=== PATIENT | male | born 1970 | race Caucasian/White ===

== ENCOUNTER 2024-06-05 02:50 | Emergency (ER) | payer BC, SELFPAY ==
[2024-06-05 02:57] VITALS: BP 157/81
[2024-06-05 02:59] LABS: Glucose - Point of Care 134 mg/dl (70-99)
[2024-06-05 03:04] VITALS: BMI 35.5
[2024-06-05] MEDS: NSS 1000 IV (03:16)
[2024-06-05 03:27] LABS: % Basophils 0.3 % (0-2); % Eosinophils 1.4 % (0-6); % Immature Granulocytes 0.5 % (0-0.5); % Lymphocytes 14.7 % (20.5-51.1); % Monocytes 8.8 % (1.7-9.3); % Neutrophils 74.3 % (42.2-75.2); Absolute Eosinophils 0.2 10^3/uL (0-0.7); Absolute Immature Granulocytes 0.1 10^3/uL (0-0.05); Absolute Lymphocytes 1.8 10^3/uL (1.2-3.4); Absolute Monocytes 1.1 10^3/uL (0.1-0.6); Absolute Neutrophils 9.3 10^3/uL (1.4-6.5); Hematocrit 43.9 % (39.0-52.0); Hemoglobin 14.9 g/dL (13.0-18.0); Mean Corp Hgb Conc. 33.9 g/dL (33.0-37.0); Mean Corpuscular Hgb 29.6 pg (27.0-31.0); Mean Corpuscular Volume 87.1 fL (80.0-94.0); Mean Platelet Volume 8.9 fL (7.4-10.4); Nucleated Red Blood Cells % 0 % (-); Platelet Count 217 10^3/uL (130-400); Red Blood Cell Count 5.04 10^6/uL (4.70-6.10); Red Cell Dist. Width 13.2 % (11.5-14.5); White Blood Cell Count 12.5 10^3/uL (4.8-10.8)
[2024-06-05 03:42] LABS: COVID-19 Antigen Negative (Negative)
--- NOTE | 2024-06-05 03:45 | ED.GENMED ---
History of Present Illness
General
Chief Complaint: Fever
Source: patient and family
Exam Limitations: none
Time Seen by Provider: 06/05/24 02:58
Nursing documentation reviewed up to this point in time: agreed with
History of Present Illness
History of Present Illness:
This is a pleasant 54-year-old male who presents with fever, cough, sore throat, body aches, and painful inspiration. Patient is an insulin-dependent diabetic and has an insulin pump. He states that his blood sugar has been running slightly higher
normal in the 140s. Tonight he states that his 'body locked up 'and his left ribs have been causing him pain. Patient reports no sick contacts. He states that upon arrival, his symptoms have improved slightly. Denies chest pain or shortness of
breath while at rest.
Past History
Past History
ED Past Medical History: IDDM, Hypothyroidism and Other (Vitamin D deficiency)
ED Past Surgical History: None
Social History
Tobacco: Non-smoker
Alcohol: Occasional
Personal:
Living: with family
Employment: Employed
Family History
Family History: Other (Noncontributory)
Review of Systems
Review of Systems
Allergies reviewed?: Yes
All Other Systems: ROS reviewed and negative except as documented in HPI and ROS
Constitutional: Reports fever, fatigue, sleep disturbance and chills
EENT: Reports no symptoms
Respiratory: Reports cough
Cardiac: Reports no symptoms
ABD/GI: Reports no symptoms
: Reports no symptoms
Musculoskeletal: Reports no symptoms
Skin: Reports no symptoms
Neurological: Reports no symptoms
Endocrine: Reports no symptoms
Hematologic/Lymphatic: Reports no symptoms
Psychiatric: Reports anxiety
Phy Exam
General Physical Exam
General Presentation: well appearing and no apparent distress
General Skin: warm and dry
General Habitus: normal
General Mental: alert
General Hydration: appears well hydrated
ENT Exam
ENT Exam: EOMI, pharynx normal, neck supple and normocephalic
Eye Exam
Eye Exam: PERRL, cornea clear and conjunctiva normal
Cardiovascular Exam
Cardiovascular Exam: regular rate/rhythm, no edema, no murmur and normal peripheral pulses
Pulmonary Exam
Pulmonary Exam: lungs clear, no respiratory distress, no rales, no crackles, no rhonchi, no stridor and no cough
Breath Sounds: Wheeze: left lower
Gastrointestinal Exam
Gastrointestinal Exam: normal bowel sounds, non tender, soft, no organomegaly, no pulsatile mass and non distended
Neurological Exam
Neurological Exam: alert, oriented x3, no motor deficits and speech normal
Musculoskeletal Exam
Musculoskeletal Exam: full ROM and no edema
Skin Exam
Skin Exam: normal color, warm/dry, no rash and no petechia
Psychiatric Exam
Psychiatric Exam: normal mood/affect
Sepsis
Sepsis Screening
Sepsis Assessment: Sepsis Ruled Out
Sepsis Screen
Sepsis Screen: Sepsis Ruled Out
Date: 06/05/24
Time: 06:40
Course
Orders/Labs/Results
Orders:
Orders
06/05/24 02:58
Urinalysis Reflex To Culture Urgent
06/05/24 02:59
ECG [Electrocardiogram (*1)] Urgent
Reason for Study: Abdominal Pain
06/05/24 03:00
EKG- Treatment ONCE
06/05/24 03:02
0.9% Sodium Chloride 1000 ml [Nss] 1,000 ml IV BOLUS
06/05/24 03:08
COVID-19 Antigen Urgent
Source: Nasal Swab
Complete Blood Count/With Diff Urgent
Comprehensive Metabolic Panel Urgent
Lactic Acid Q4H
Comment: CANCEL 2nd LACTIC ACID IF 1st LACTIC ACID IS LESS THAN 2
Influenza A+B Rapid Molecular Urgent
SEAN Source: Nasal Swab
Specimen Description:
06/05/24 04:14
CT Chest PE Study Urgent
Comment:
Reason For Exam: cp. dyspnea. tachy
06/05/24 05:50
Azithromycin [Zithromax] 500 mg PO NOW STA
06/05/24 05:51
CefTRIAXone [Rocephin] 2,000 mg IV NOW STA
06/05/24 06:10
Sterile Water [Sterile Water For Injection] 20 ml .ROUTE .STK-MED
06/05/24 07:00
Lactic Acid Q4H
Comment: CANCEL 2nd LACTIC ACID IF 1st LACTIC ACID IS LESS THAN 2
Abnormal Lab Results
06/05/24 06/05/24
02:57 03:08
WBC 12.5 H 10^3/uL
(4.8-10.8)
Abs Immat Gran (auto) 0.1 H 10^3/uL
(0-0.05)
Absolute Neuts (auto) 9.3 H 10^3/uL
(1.4-6.5)
Absolute Monos (auto) 1.1 H 10^3/uL
(0.1-0.6)
Lymphocytes % 14.7 L %
(20.5-51.1)
Glucose 148 H mg/dl
(70-99)
ALT 52 H U/L
(0-50)
Alkaline Phosphatase 130 H U/L
(38-126)
POC Glucose 134 H mg/dl
(70-99)
06/05/24 03:08
06/05/24 03:08
Vital Signs
Initial and Last Documented VS:
Initial Vital Signs
Temp Pulse Resp BP Pulse Ox
98.1 F 101 20 157/81 95
06/05/24 02:57 06/05/24 02:57 06/05/24 02:57 06/05/24 02:57 06/05/24 02:57
Last Documented Vital Signs
Temp Pulse Resp BP Pulse Ox
98.1 F 99 16 140/83 93
06/05/24 02:57 06/05/24 04:15 06/05/24 04:15 06/05/24 04:00 06/05/24 04:46
*Critical Care Note
Total Time (30-74mins, 75-104mins- exclusive of procedures): Not Applicable
Update Note
Update Note:
EKG shows sinus tachycardia rate of 104 with normal intervals, normal axis. No evidence of acute ischemia present.
CTA CHEST
IMPRESSION:
1. Adequate technical study. No acute pulmonary embolism.
2. No thoracic aortic aneurysm or acute aortic dissection. Groundglass opacities and centrilobular nodules within the left. The right lower lobes, left related to infection or aspiration. Right lower lobe granuloma.
Incidentals:
- No acute osseous abnormality. Mild sclerosis within the left lateral 5th rib, may represent sequela of prior injury. Consider correlation with prior imaging.
- No acute abnormality within the visualized abdomen.
- No thoracic lymphadenopathy or suspicious lymph nodes.
Case finalized on Jun 05 2024 4:41AM ET
ED Attending Note
-
Portions of this chart may have been created with voice recognition software.� Occasional wrong word or��sound alike� substitutions may have occurred due to the inherent limitations of voice recognition software.
Discharge Plan
Departure
Patient Disposition: Home (Routine Discharge)
Date of Disposition: 06/05/24
Time of Disposition: 06:20
Patient with high blood pressure during this ER visit?: Yes
Condition: Good
Discharge Problem:
Pneumonia
Instructions: BLOOD PRESSURE, Pneumonia
Prescriptions:
New
azithromycin [Zithromax] 250 mg tablet
250 mg PO DAILY 4 Days Qty: 4 0RF
No Action
aspirin [Aspir-Low] 81 MG tablet,delayed release (DR/EC)
81 mg PO Daily
levothyroxine 75 MCG tablet
75 mcg PO DAILY AT 0700
cholecalciferol (vitamin D3) 1,000 UNITS tablet
1,000 units PO DAILY
insulin aspart U-100 [Novolog FlexPen U-100 Insulin] 300 UNITS/3 ML insulin pen
8 units SC AC 0RF
insulin detemir U-100 [Levemir U-100 Insulin] 1,000 UNITS/10 ML solution
16 units SC BID@0800,2200 0RF
guaifenesin [Mucus Relief ER] 600 MG tablet extended release 12hr
1,200 mg PO Q12 Qty: 30 0RF
Referrals:
UNKNOWN - PT DOES,NOT KNOW [Family Provider] -
Activity Restrictions/Additional Instructions:
It was a pleasure meeting you and taking part in your care. We hope for your continued healing and wellness.
Please read discharge instructions in their entirety. However, they are for general education and may not describe your exact diagnosis at discharge. Information on your ER visit and medical conditions were discussed with you along with appropriate
follow up information...
If indicated, please take your medications as instructed and indicated on discharge paperwork.
Please schedule a follow up appointment as directed. Call to schedule an appointment
Please return to the emergency department with ANY change in, persisting, or worsening of symptoms. If any of your symptoms do not improve, or persist, or become more severe within 6-12 hours, please return to the emergency department for further
care.
Please return to the emergency department if you develop a headache, neck pain/stiffness, fever greater than 100.4F, chest pain, shortness of breath, persistent nausea, vomiting, slurred speech, difficulty walking, numbness/tingling, weakness, signs
of infection or any other symptoms that are worrisome to you.
If you have any questions or concerns please do not hesitate to call the Hospital at or E-mail me directly at [email or web address]
Interventions
Interventions:
*Risk Screen - Suicide Last Done: 06/05/24 02:57
*General Assessment Last Done: 06/05/24 03:17
*Neglect/Abuse Screening Last Done: 06/05/24 02:57
*ED- Fall Risk Assessment Last Done: 06/05/24 02:57
*ED COVID-19 Vaccine History Last Done: 06/05/24 02:57
ED- Neurological Assessment Last Done: 06/05/24 03:17
ED-Skin Assessment Last Done: 06/05/24 03:17
Discharge Date and Time
Print Language: TURKISH
[2024-06-05 03:46] LABS: ALT (SGPT) 52 U/L (0-50); AST (SGOT) 47 U/L (17-59); Albumin 4.3 g/dl (3.5-5.0); Alkaline Phosphatase 130 U/L (38-126); Blood Urea Nitrogen 15 mg/dl (9-20); Calcium 9.6 mg/dl (8.4-10.2); Carbon Dioxide 24 mmol/L (22-30); Chloride 102 mmol/L (98-107); Estimated Creatinine Clearance 125 ml/min; Glucose 148 mg/dl (70-99); Potassium 3.9 mmol/L (3.5-5.1); Sodium 138 mmol/L (135-145); Total Bilirubin 1.3 mg/dl (0.2-1.3); Total Protein 7.3 g/dl (6.3-8.2); eGFR > 60.00
[2024-06-05 03:48] LABS: Lactic Acid 1.8 mmol/L (0.7-2.0)
[2024-06-05 04:00] VITALS: BP 140/83
[2024-06-05 05:03] VITALS: BP 153/72
[2024-06-05 06:00] VITALS: BP 146/77
[2024-06-05] MEDS: ZITHROMAX 500 MG PO (06:13)
[2024-06-05] MEDS: ROCEPHIN 2000 MG IV (06:14)
[2024-06-05 06:47] VITALS: BP 138/86
== END 2024-06-05 06:50 | disposition home or self-care (01) ==
LOC: EMR 02:50
PROVIDERS: EMERGENCY PHYSICIAN Student in an Organized Health Care Education/Training Program
DX: J18.9 Pneumonia, unspecified organism (principal); R50.9 Fever, unspecified; E11.9 Type 2 diabetes mellitus without complications; Z79.4 Long term (current) use of insulin; Z96.41 Presence of insulin pump (external) (internal); E03.9 Hypothyroidism, unspecified; E55.9 Vitamin D deficiency, unspecified
CPT/HCPCS: 99284; 96374; 96361; 71275; 80053; 82962; 83605; 85025; 87502; 87811; 93005; Q9967

== ENCOUNTER → 2024-07-08 09:57 | Outpatient (REF) | payer BC, SELFPAY | LOC: RAD 09:57 | PROVIDERS: ATTENDING PHYSICIAN Family Medicine | DX: J18.9 Pneumonia, unspecified organism (principal) | CPT/HCPCS: 71046 ==